=== PATIENT | male | born 1990 | race Caucasian/White ===

== ENCOUNTER 2017-12-11 04:00 | Emergency (ER) | payer OTHER ==
[2017-12-11] MEDS ORDERED: Ondansetron 4 MG/2 ML SDV IVPUSH ONE (04:17)
[2017-12-11] MEDS ORDERED: HYDROmorphone 0.5 MG/0.5 ML SYRINGE IVPUSH ONE ×2 (04:18→05:22)
--- NOTE | 2017-12-11 04:23 | EDM.PDOC ---
ED HPI GENERAL MEDICAL PROBLEM - General Chief Complaint: Abdominal Pain Stated Complaint: [facility] Time Seen by Provider: 12/11/17 04:05 Source of Information: Reports: Patient History Limitations: Reports: No Limitations - History of Present Illness INITIAL COMMENTS - FREE TEXT/NARRATIVE: The patient states that he was sitting at home, when he felt a pop in his abdomen, around 03:30 this morning. He states that he developed left lower quadrant abdominal pain about 10 seconds later, which has persisted. The pain is made worse if he walks. No associated nausea, vomiting, constipation, diarrhea, or urinary symptoms. No prior similar symptoms. [facility]. Left Lower Abdomen Pain Score (Numeric/FACES): 5 - Related Data Allergies Allergy/AdvReac Type Severity Reaction Status Date / Time No Known Allergies Allergy Verified 12/11/17 04:03 Home Meds: Home Meds . [No Known Home Meds] 12/11/17 [History] Past Medical History Musculoskeletal History: Reports: Fracture - Past Surgical History HEENT Surgical History: Reports: Myringotomy w Tube(s) (bilateral), Oral Surgery (wisdom teeth extraction) Musculoskeletal Surgical History: Reports: ORIF (right 5th metacarpal) Social & Family History - Tobacco Use Smoking Status *Q: Current Every Day Smoker Years of Tobacco use: 14 Packs/Tins Daily: 1 Packs/Tins Daily Comment: Down from 2 ppd - Alcohol Use Alcohol Use History: Yes Days Per Week of Alcohol Use: 3 Number of Drinks Per Day: 5 Total Drinks Per Week: 15 Alcohol Use Frequency: Socially - Recreational Drug Use Recreational Drug Use: Yes Drug Use in Last 12 Months: Yes Recreational Drug Type: Reports: Ecstasy, Marijuana/Hashish (smokes occasionally ), Psilocybin (Mushrooms) - Living Situation & Occupation Living situation: Reports: Single, Alone Occupation: Employed ([employer]) ED ROS GENERAL - Review of Systems Review Of Systems: ROS reveals no pertinent complaints other than HPI. ED EXAM, GI/ABD - Physical Exam Exam: See Below Exam Limited By: No Limitations General Appearance: Alert, WD/WN, No Apparent Distress, Other (Apprehensive) Eyes: Bilateral: Normal Appearance, EOMI Ears: Normal External Exam, Hearing Grossly Normal Nose: Normal Inspection, No Blood Throat/Mouth: Normal Inspection, Normal Lips, Normal Voice, No Airway Compromise Head: Atraumatic, Normocephalic Neck: Normal Inspection, Full Range of Motion Respiratory/Chest: No Respiratory Distress, Lungs Clear, Normal Breath Sounds, No Accessory Muscle Use Cardiovascular: Normal Peripheral Pulses, Regular Rate, Rhythm, No Edema, No Gallop, No JVD, No Murmur, No Rub GI/Abdominal Exam: Normal Bowel Sounds, Soft, Non-Tender (including LLQ), No Organomegaly, No Distention, No Abnormal Bruit, No Mass. No: Hernia (Male) Exam: Deferred Rectal (Males) Exam: Deferred Back Exam: Normal Inspection, Full Range of Motion. No: CVA Tenderness (L), CVA Tenderness (R) Extremities: Normal Inspection, Normal Range of Motion, No Pedal Edema, Normal Capillary Refill Neurological: Alert, Oriented, Normal Cognition, No Motor/Sensory Deficits Psychiatric: Normal Affect Skin Exam: Warm, Dry, Intact, Normal Color, No Rash Course - Vital Signs Last Recorded V/S: Last Vital Signs Temp 36.9 C 12/11/17 04:06 Pulse 113 H 12/11/17 04:06 Resp 18 12/11/17 04:06 BP 138/91 H 12/11/17 04:06 Pulse Ox 98 12/11/17 04:06 - Orders/Labs/Meds Orders: Active Orders 24 hr Category Date Time Status Abdomen Pelvis w Cont [CT] Stat Exams 12/11/17 04:17 Taken Sodium Chloride 0.9% [Normal Saline] 1,000 ml Med 12/11/17 04:30 Active IV ASDIRECTED Medication Orders Sodium Chloride (Normal Saline) 1,000 mls @ 150 mls/hr IV ASDIRECTED KATHY Last Admin: 12/11/17 04:27 Dose: 150 mls/hr Labs: Laboratory Tests 12/11/17 12/11/17 12/11/17 Range/Units 04:22 04:22 05:40 WBC 14.56 H (4.23-9.07) K/mm3 RBC 5.34 (4.63-6.08) M/mm3 Hgb 16.2 (13.7-17.5) gm/L Hct 45.8 (40.1-51.0) % MCV 85.8 (79.0-92.2) fl MCH 30.3 (25.7-32.2) pg MCHC 35.4 (32.2-35.5) g/dl RDW Std Deviation 40.9 (35.1-43.9) fL Plt Count 287 (163-337) K/mm3 MPV 9.4 (9.4-12.3) fl Neutrophils % (Manual) 76 H (40-60) % Band Neutrophils % 2 (0-10) % Lymphocytes % (Manual) 20 (20-40) % Atypical Lymphs % 0 % Monocytes % (Manual) 2 (2-10) % Eosinophils % (Manual) 0 L (0.8-7.0) % Basophils % (Manual) 0 L (0.2-1.2) Platelet Estimate Adequate RBC Morph Comment Normal Sodium 138 (136-145) mEq/L Potassium 3.6 (3.5-5.1) mEq/L Chloride 104 (98-107) mEq/L Carbon Dioxide 23 (21-32) mEq/L Anion Gap 14.6 (5-15) BUN 17 (7-18) mg/dL Creatinine 0.9 (0.7-1.3) mg/dL Est Cr Clr Drug Dosing 113.68 mL/min Estimated GFR (MDRD) > 60 (>60) mL/min BUN/Creatinine Ratio 18.9 H (14-18) Glucose 95 (74-106) mg/dL Calcium 9.0 (8.5-10.1) mg/dL Total Bilirubin 0.2 (0.2-1.0) mg/dL AST 23 (15-37) U/L ALT 34 (16-63) U/L Alkaline Phosphatase 68 (46-116) U/L Total Protein 7.4 (6.4-8.2) g/dl Albumin 4.1 (3.4-5.0) g/dl Globulin 3.3 gm/dL Albumin/Globulin Ratio 1.2 (1-2) Lipase 214 (73-393) U/L Urine Color Yellow (Yellow) Urine Appearance Clear (Clear) Urine pH 6.5 (5.0-8.0) Ur Specific [place] 1.020 (1.005-1.030) Urine Protein Negative (Negative) Urine Glucose (UA) Negative (Negative) Urine Ketones Negative (Negative) Urine Occult Blood Negative (Negative) Urine Nitrite Negative (Negative) Urine Bilirubin Negative (Negative) Urine Urobilinogen 0.2 (0.2-1.0) Ur Leukocyte Esterase Negative (Negative) Urine RBC 0-5 (0-5) /hpf Urine WBC 0-5 (0-5) /hpf Ur Epithelial Cells 0-5 (0-5) /hpf Urine Bacteria Not seen (FEW) /hpf Urine Mucus Not seen (FEW) /hpf Meds: Medications Generic Name Dose Route Start Last Admin Trade Name Freq PRN Reason Stop Dose Admin Sodium Chloride 1,000 mls @ 150 mls/hr 12/11/17 04:30 12/11/17 04:27 Normal Saline IV 150 mls/hr ASDIRECTED KATHY Administration Discontinued Medications Generic Name Dose Route Start Last Admin Trade Name Freq PRN Reason Stop Dose Admin Hydromorphone HCl 0.5 mg 12/11/17 04:18 12/11/17 04:31 Dilaudid IVPUSH 12/11/17 04:19 0.5 mg ONETIME ONE Administration Hydromorphone HCl 0.5 mg 12/11/17 05:22 12/11/17 05:48 Dilaudid IVPUSH 12/11/17 05:23 0.5 mg ONETIME ONE Administration Iopamidol 125 ml 12/11/17 05:18 12/11/17 05:36 Isovue-300 (61%) IVPUSH 12/11/17 05:19 125 ml ONETIME ONE Administration Ondansetron HCl 4 mg 12/11/17 04:17 12/11/17 04:28 Zofran IVPUSH 12/11/17 04:18 4 mg ONETIME ONE Administration - Re-Assessments/Exams Free Text/Narrative Re-Assessment/Exam: 12/11/17 04:30 The etiology of the patient's left lower quadrant abdominal pain is unclear. He has pain in that area, particularly if he contracts the abdominal muscles, such as with attempting to sit up, however, there is no tenderness to the area, his abdomen is soft with normal bowel sounds. I ordered blood work, urinalysis, and a CT scan of the abdomen and pelvis with oral and IV contrast to further evaluate. The patient will receive IV fluid, Dilaudid, and Zofran. 12/11/17 05:22 The patient is drinking the oral contrast. He has not yet provided a urine sample. He states that the Dilaudid that he received earlier is not really helping with his pain. I have ordered more. 12/11/17 06:06 CT of the abdomen and pelvis with oral and IV contrast is read by [facility] as: No acute findings. No evidence for renal or ureteral calculi 12/11/17 06:13 Test results discussed with the patient. Today's workup is unremarkable, and does not explain the cause of the patient's pain. I'm recommending that if his pain continues, that he follow-up with his PCP at the [place], for possible arrangement for an EGD/colonoscopy. Departure - Departure Time of Disposition: :14 Disposition: Home, Self-Care 01 Condition: Good Clinical Impression: Left lower quadrant abdominal pain of unknown etiology - Discharge Information *PRESCRIPTION DRUG MONITORING PROGRAM REVIEWED*: Not Applicable *COPY OF PRESCRIPTION DRUG MONITORING REPORT IN PATIENT RASHARD: Not Applicable Referrals: Melisa Hernandez DO [Primary Care Provider] - Forms: ED Department Discharge Additional Instructions: You were seen in the emergency room after feeling a popping sensation in her abdomen, and developing lower left abdominal pain. Workup in the ER included blood work, urinalysis, and a CT scan of your abdomen and pelvis. Your entire workup was unremarkable, and does not explain the cause of your pain. If your pain persists, please follow-up with your PCP at the [place], for possible arrangement for an EGD (scope of the stomach) and a colonoscopy (scope of the colon). If any other problems, please do not hesitate to return to the ER. - My Orders Last 24 Hours: My Active Orders 12/11/17 04:17 Abdomen Pelvis w Cont [CT] Stat 12/11/17 04:30 Sodium Chloride 0.9% [Normal Saline] 1,000 ml IV ASDIRECTED - Assessment/Plan Last 24 Hours: My Active Orders 12/11/17 04:17 Abdomen Pelvis w Cont [CT] Stat 12/11/17 04:30 Sodium Chloride 0.9% [Normal Saline] 1,000 ml IV ASDIRECTED
[2017-12-11] MEDS ORDERED: Sodium Chloride 0.9% 1,000 ML IV SCH (04:30)
[2017-12-11] MEDS ORDERED: Iopamidol 612 MG/ML 150 ML Bottle IVPUSH ONE (05:18)
--- NOTE | 2017-12-11 08:40 | CT ---
CT abdomen and pelvis Technique: Multiple axial sections were obtained from above the dome of the diaphragm inferiorly through the pubic symphysis. Intravenous and oral contrast was utilized. Delayed images were obtained through the bladder. Comparison: No prior study. Findings: Visualized lung bases show nothing acute. Liver shows no focal parenchymal abnormality. Spleen appears within normal limits. Gallbladder contains no calcified gallstones. Kidneys show symmetric contrast enhancement without hydronephrosis or mass. Adrenal glands show no nodule. Pancreas is within normal limits. Aorta shows no aneurysmal dilatation. No retroperitoneal adenopathy is seen. Appendix is seen which is normal in size. No pelvic mass or adenopathy is seen. Delayed images show contrast within the bladder. No free fluid or inflammatory change is seen. No bowel dilatation or bowel wall thickening is seen. Bone window settings were reviewed which appear within normal limits for the patient's age. Impression: 1. No abnormality is identified on CT study of the abdomen and pelvis. Diagnostic code #1 Agree with preliminary report issued by [facility] ([facility] preliminary report dictated on 12/11/17, 6:52 AM Central Time)
== END 2017-12-11 06:20 | disposition home or self-care (01) ==
LOC: JD.ED 04:00
DX: R10.32 Left lower quadrant pain (principal); F17.210 Nicotine dependence, cigarettes, uncomplicated
CPT/HCPCS: 36415; 74177; 80053; 81001; 83690; 85007; 85027; 96361; 96374; 96375; 96376; 99285; J1170; J2405; J7040; Q9967; 99284